=== PATIENT | male | born 2000 | race Caucasian/White ===

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

== ENCOUNTER 2018-01-26 13:35 | Emergency (ER) | payer BC, OTHER ==
[2018-01-26 13:49] VITALS: BP 104/65
--- NOTE | 2018-01-26 13:54 | UC ---
Hand/Wrist HPI - HPI Summary HPI Summary: c/o trauma to right hand yesterday while playing paint ball, landed on it extending pinky finger. Denies pain when at rest, but painful when extending finger. - History Of Current Complaint Stated Complaint: HAND INJURY Time Seen by Provider: 01/26/18 13:41 Hx Obtained From: Patient ?: No Onset/Duration: Sudden Onset, Lasting Days Severity Initially: Severe Severity Currently: Moderate Pain Intensity: 6 Character Of Pain: Dull Aggravating Factor(s): Extension Alleviating Factor(s): Rest, Ice, Elevation Associated Signs And Symptoms: Positive: Negative - Allergies/Home Medications Allergies/Adverse Reactions: Allergies Allergy/AdvReac Type Severity Reaction Status Date / Time No Known Allergies Allergy Verified 03/03/13 19:18 PMH/Surg Hx/FS Hx/Imm Hx Previously Healthy: Yes - Surgical History Surgical History: None - Social History Alcohol Use: Rare Substance Use Type: None Smoking Status (MU): Never Smoked Tobacco - Immunization History Vaccination Up to Date: Yes Review of Systems Constitutional: Negative Musculoskeletal: Arthralgia, Myalgia All Other Systems Reviewed And Are Negative: Yes Physical Exam Triage Information Reviewed: Yes Appearance: Well-Appearing, No Pain Distress, Well-Nourished Vital Signs: Initial Vital Signs Temp 97.8 F 01/26/18 13:46 Pulse 76 01/26/18 13:46 Resp 16 01/26/18 13:46 BP 104/65 01/26/18 13:46 Pulse Ox 99 01/26/18 13:46 Vital Signs Reviewed: Yes Eyes: Positive: Conjunctiva Clear ENT: Positive: Hearing grossly normal Respiratory: Positive: No respiratory distress Cardiovascular: Positive: Pulses Normal, Brisk Capillary Refill Musculoskeletal: Positive: Strength Intact, No Edema, Other: - right hand: mild tenderness on fifth MCP joint. No deformity, no bruises, no edema. Radial/ulnar pulses present, capillary refill brisk. Hand/Wrist Course/Dx - Course Course Of Treatment: Xrays show no fracture of right hand. Instructed about RICE , ibuprofen as needed, f/u with PCP in 2 weeks, Referral to hand specialist if symptoms persist - Differential Dx/Diagnosis Provider Diagnoses: hand sprain Discharge - Sign-Out/Discharge Documenting (check all that apply): Discharge/Admit/Transfer - Discharge Plan Condition: Good Disposition: HOME Patient Education Materials: Ibuprofen (By mouth), Hand Sprain (ED) Referrals: Mannie Johnson MD [Primary Care Provider] - - Billing Disposition and Condition Condition: GOOD Disposition: HOME
--- NOTE | 2018-01-26 14:18 | RAD ---
Indication: Right hand pain. 4 views of the right hand demonstrates no fracture. Special attention was paid to the proximal interphalangeal joint of the fifth digit. No fracture is identified. There is a tiny calcification at the fifth metacarpal phalangeal joint in its radial aspect. This may be sequela from prior injury. This does not appear to be recent. IMPRESSION: No fracture of the right hand with special attention paid to the right fifth digit.
== END 2018-01-26 14:37 | disposition home or self-care (01) ==
LOC: UCEAST 13:35
DX: S63.91XA Sprain of unspecified part of right wrist and hand, initial encounter (principal); W18.30XA Fall on same level, unspecified, initial encounter; Y93.89 Activity, other specified; Y92.9 Unspecified place or not applicable
CPT/HCPCS: 99211; G0463

== ENCOUNTER 2018-06-03 15:21 | Emergency (ER) | payer BC ==
[2018-06-03 15:32] VITALS: BP 137/82
--- NOTE | 2018-06-03 16:52 | UC ---
Respiratory Complaint HPI - HPI Summary HPI Summary: cough x 3 days + chest congestion , productive cough with yellow sputum no fever, no chills, + wheezing no nasal congestion , no cold symptoms - History of Current Complaint Chief Complaint: UCRespiratory Stated Complaint: COUGH,ASTHMA Time Seen by Provider: 06/03/18 16:24 Hx Obtained From: Patient Onset/Duration: Gradual Onset, Lasting Days - 3, Still Present Timing: Constant Severity Initially: Moderate Severity Currently: Moderate Pain Intensity: 6 Character: Cough: Productive - yellow Aggravating Factors: Exertion, Deep Breaths Alleviating Factors: Nothing Associated Signs And Symptoms: Positive: Dyspnea, Wheezing. Negative: Fever, Chills, Edema, URI, Nasal Congestion - Allergies/Home Medications Allergies/Adverse Reactions: Allergies Allergy/AdvReac Type Severity Reaction Status Date / Time No Known Allergies Allergy Verified 06/03/18 15:32 Home Medications: Home Medications Albuterol HFA INHALER* [Ventolin HFA Inhaler*] 2 puff INH Q4H PRN 06/03/18 [ History Confirmed 06/03/18] PMH/Surg Hx/FS Hx/Imm Hx Respiratory History: Asthma - Surgical History Surgical History: None - Family History Known Family History: Negative: Diabetes - Social History Alcohol Use: None Substance Use Type: None Smoking Status (MU): Never Smoked Tobacco - Immunization History Vaccination Up to Date: Yes Review of Systems Constitutional: Negative Skin: Negative Eyes: Negative ENT: Negative Respiratory: Shortness Of Breath, Cough Cardiovascular: Negative Gastrointestinal: Negative Is Patient Immunocompromised?: No All Other Systems Reviewed And Are Negative: Yes Physical Exam Triage Information Reviewed: Yes Appearance: Well-Appearing, No Pain Distress, Well-Nourished Vital Signs: Initial Vital Signs Temp 98.8 F 06/03/18 15:29 Pulse 84 06/03/18 15:29 Resp 18 06/03/18 15:29 BP 137/82 06/03/18 15:29 Pulse Ox 98 06/03/18 15:29 Vital Signs Reviewed: Yes Eye Exam: Normal Eyes: Positive: Conjunctiva Clear ENT: Positive: Normal ENT inspection, Hearing grossly normal, Pharynx normal Neck exam: Normal Neck: Positive: Supple, Nontender, No Lymphadenopathy Respiratory: Positive: Chest non-tender, Wheezing Cardiovascular: Positive: RRR, No Murmur, Pulses Normal Skin Exam: Normal Diagnostic Evaluation - Laboratory O2 Sat by Pulse Oximetry: 98 Diagnostic Studies Comment: chest xray: IMPRESSION: NO ACTIVE CARDIOPULMONARY DISEASE. Respiratory Course/Dx - Differential Dx/Diagnosis Provider Diagnoses: bronchitis Discharge - Sign-Out/Discharge Documenting (check all that apply): Patient Departure All imaging exams completed and their final reports reviewed: Yes - Discharge Plan Condition: Stable Disposition: HOME Patient Education Materials: Acute Bronchitis (ED) Referrals: Mannie Johnson MD [Primary Care Provider] - 7 Days Additional Instructions: viral Bronchitis no need for antibiotics cont. with rest, increase fluid cont. with your albuterol inh as needed for wheezing and sob - Billing Disposition and Condition Condition: STABLE Disposition: Home
--- NOTE | 2018-06-03 16:57 | RAD ---
HISTORY: cough COMPARISONS: None VIEWS: 4: Frontal dual-energy and lateral views of the chest. FINDINGS: CARDIOMEDIASTINAL SILHOUETTE: The cardiomediastinal silhouette is normal. MARY KAY: The mary kay are normal. PLEURA: The costophrenic angles are sharp. No pleural abnormalities are noted. LUNG PARENCHYMA: The lungs are clear. ABDOMEN: The upper abdomen is clear. There is no subphrenic gas. BONES AND SOFT TISSUES: No bone or soft tissue abnormalities are noted. OTHER: None. IMPRESSION: NO ACTIVE CARDIOPULMONARY DISEASE.
== END 2018-06-03 17:06 | disposition home or self-care (01) ==
LOC: UCEAST 15:21
DX: J45.909 Unspecified asthma, uncomplicated (principal)
CPT/HCPCS: 71046; 99211; G0463

== ENCOUNTER 2018-06-09 14:03 | Emergency (ER) | payer BC ==
[2018-06-09 14:16] VITALS: BP 110/63
--- NOTE | 2018-06-09 14:40 | UC ---
Respiratory Complaint HPI - HPI Summary HPI Summary: 17 y/o with h/o asthma c/o shortness of breath, non-productive cough x 10 days without improvement suing albuterol inhaller 2-3 times a dy, no dizziness , lightheadedness, able to do daily activities. no fever, chills, no fatigue, no feeling ill. - History of Current Complaint Chief Complaint: UCRespiratory Stated Complaint: COUGH Time Seen by Provider: 06/09/18 14:13 Hx Obtained From: Patient Onset/Duration: Gradual Onset, Lasting Days Severity Initially: Mild Severity Currently: None Pain Intensity: 0 Pain Scale Used: 0-10 Numeric Aggravating Factors: Exertion Alleviating Factors: Bronchodilator Associated Signs And Symptoms: Positive: Dyspnea - with activity - Allergies/Home Medications Allergies/Adverse Reactions: Allergies Allergy/AdvReac Type Severity Reaction Status Date / Time No Known Allergies Allergy Verified 06/09/18 14:16 PMH/Surg Hx/FS Hx/Imm Hx Previously Healthy: Yes - Surgical History Surgical History: None - Family History Known Family History: Negative: Diabetes - Social History Alcohol Use: None Substance Use Type: None Smoking Status (MU): Never Smoked Tobacco - Immunization History Vaccination Up to Date: Yes Review of Systems Respiratory: Shortness Of Breath Is Patient Immunocompromised?: No All Other Systems Reviewed And Are Negative: Yes Physical Exam Triage Information Reviewed: Yes Appearance: Well-Appearing, No Pain Distress, Well-Nourished Vital Signs: Initial Vital Signs Temp 98.3 F 06/09/18 14:13 Pulse 72 06/09/18 14:13 Resp 18 06/09/18 14:13 BP 110/63 06/09/18 14:13 Pulse Ox 97 06/09/18 14:13 Vital Signs Reviewed: Yes Eyes: Positive: Conjunctiva Clear ENT: Positive: Pharynx normal, TMs normal, Uvula midline. Negative: Dental tenderness, Sinus tenderness Neck: Positive: Supple, Nontender, No Lymphadenopathy Respiratory: Positive: Chest non-tender, Lungs clear, Normal breath sounds, No respiratory distress, No accessory muscle use, Wheezing - minimal expiratorty wheeze worst MARICRUZ. Negative: Respiratory distress, Decreased breath sounds, Accessory muscle use Cardiovascular Exam: Normal UC Diagnostic Evaluation - Laboratory O2 Sat by Pulse Oximetry: 97 Respiratory Course/Dx - Course Course Of Treatment: mild asthma exaccerbation due to viral URI, short course prednisone with steroid inhaler given, follow up with pcp if no improvement or return to ER with shrtness of breath - Differential Dx/Diagnosis Differential Diagnosis/HQI/PQRI: Asthma Provider Diagnoses: viral URI Discharge - Sign-Out/Discharge Documenting (check all that apply): Patient Departure All imaging exams completed and their final reports reviewed: Yes - Discharge Plan Condition: Good Disposition: HOME Prescriptions: Albuterol HFA INHALER* [Ventolin HFA Inhaler*] 2 puff INH Q4H PRN #1 mdi PRN Reason: Shortness Of Breath Beclomethasone 80 MCG MDI(NF) [Qvar 80 MCG MDI(NF)] 1 puff INH DAILY #1 mdi predniSONE [Prednisone 20 MG TAB] 20 mg PO DAILY #2 tablet Patient Education Materials: Beclomethasone (By breathing) Forms: *School Release Referrals: Mannie Johnson MD [Primary Care Provider] - Additional Instructions: - steroid inhaler while ill to decrease symptoms - Albuterol inhaler as needed for shortness of breath - oral prednisone to decrease symptoms - return with increased shortness of breath - Billing Disposition and Condition Condition: GOOD Disposition: Home
== END 2018-06-09 15:05 | disposition home or self-care (01) ==
LOC: UCEAST 14:03
DX: J06.9 Acute upper respiratory infection, unspecified (principal)
CPT/HCPCS: 99212; G0463

== ENCOUNTER 2019-11-16 12:26 | Emergency (ER) | payer OTHER ==
[2019-11-16 13:08] LABS: Influenza B Molecular POSITIVE (Negative)
[2019-11-16 13:09] VITALS: BP 110/69
--- NOTE | 2019-11-16 13:24 | UC ---
FLU HPI - HPI Summary HPI Summary: 19-year-old male comes in with a chief complaint of influenza-like illness for about 5 days. Is also having cough chest congestion. Sputum was turned yellow and had some blood in it today. Does have a history of asthma is been using his albuterol inhaler which does help with the breathing. Does have fever chills body aches. - History of Current Complaint Chief Complaint: UCGeneralIllness Stated Complaint: FLU SYMPTOMS Time Seen by Provider: 11/16/19 13:02 Pain Intensity: 1 - Allergy/Home Medications Allergies/Adverse Reactions: Allergies Allergy/AdvReac Type Severity Reaction Status Date / Time No Known Allergies Allergy Verified 11/16/19 13:02 Home Medications: Home Medications Albuterol HFA INHALER* [Ventolin HFA Inhaler*] 2 puff INH Q4H PRN #1 mdi [Rx Confirmed 11/16/19] Beclomethasone 80 MCG MDI(NF) [Qvar 80 MCG MDI(NF)] 1 puff INH DAILY #1 mdi [Rx Confirmed 11/16/19] Azithromyxin JANI (NF) [Z-Jani (Zithromax) 250 mg tabs #6] 2 tab PO .TODAY, THEN 1 DAILY #6 tab 11/16/19 [Rx] PMH/Surg Hx/FS Hx/Imm Hx Previously Healthy: Yes Respiratory History: Asthma - Surgical History Surgical History: Yes Surgery Procedure, Year, and Place: oral surgery - Family History Known Family History: Negative: Diabetes - Social History Alcohol Use: None Substance Use Type: None Smoking Status (MU): Never Smoked Tobacco - Immunization History Vaccination Up to Date: Yes Review of Systems All Other Systems Reviewed And Are Negative: Yes Constitutional: Positive: Fever, Chills, Other - SEE HPI Skin: Positive: Negative Eyes: Positive: Negative ENT: Positive: Sore Throat - MILD, Nasal Discharge Respiratory: Positive: Cough, Other - SEE HPI Cardiovascular: Positive: Negative Gastrointestinal: Positive: Negative Motor: Positive: Negative Neurovascular: Positive: Negative Musculoskeletal: Positive: Myalgia Neurological/Mental Status: Positive: Headache Psychological: Positive: Negative Is Patient Immunocompromised?: No Physical Exam Triage Information Reviewed: Yes Appearance: No Pain Distress, Well-Nourished, Ill-Appearing - MILD Vital Signs: Initial Vital Signs Temp 100 F 11/16/19 13:03 Pulse 110 11/16/19 13:03 Resp 18 11/16/19 13:03 BP 110/69 11/16/19 13:03 Pulse Ox 96 11/16/19 13:03 Vital Signs Reviewed: Yes Eye Exam: Normal Eyes: Positive: Conjunctiva Clear ENT: Positive: Pharynx normal, Nasal congestion, Nasal drainage, TMs normal Neck: Positive: Supple Respiratory: Positive: No respiratory distress, Rhonchi - MILD Cardiovascular: Positive: RRR Musculoskeletal: Positive: Strength Intact, ROM Intact Neurological: Positive: Alert, Muscle Tone Normal Psychological: Positive: Age Appropriate Behavior Skin Exam: Normal Flu Course/Dx - Course Course Of Treatment: Publications Writer: Steffany Quiroz ([id number]) Dice Maker: JOHN (ROYCEANCE) Report Date: 11/16/2019 13:20:00 Report Status: Final Start of Report Content Patient Name: SOTERO DAVALOS Medical Record#: [id number] Ordering Physician: Jv Gaines MD Acct.#: [id number] : 2000 Age: 19 Sex: M Location: [facility] Exam Date: 11/16/19 ADM Status: REG REF Order Information: CHEST PA LAT 2 [facility] Accession Number: [id number] CPT: 18496 HISTORY: PNEUMONIA, UNSPECIFIED ORGANISM COMPARISONS: Prior study of June 03, 2018. VIEWS: 4: Frontal dual-energy and lateral views of the chest. FINDINGS: CARDIOMEDIASTINAL SILHOUETTE: The cardiomediastinal silhouette is normal. CAMMY: The cammy are normal. Bilateral perihilar bronchial cuffing is noted PLEURA: The costophrenic angles are sharp. No pleural abnormalities are noted. LUNG PARENCHYMA: The lungs are clear. There is moderate hyperaeration ABDOMEN: The upper abdomen is clear. There is no subphrenic gas. BONES AND SOFT TISSUES: No bone or soft tissue abnormalities are noted. OTHER: None. IMPRESSION: Moderate hyperaeration with bilateral perihilar bronchial cuffing may suggest bronchitis, please correlate clinically <Electronically signed by Steffany Quiroz MD in [place]> 11/16/19 1317 Dictated By: Steffany Quiroz MD Dictated Date/Time: 11/16/19 1315 Transcribed Date/Time: 11/16/19 131 Copy to: CC:Jv Gaines MD Imaging - [facility] Imaging - [facility] [address] [address] ph ) ph [phone]) ph ([phone]) End of Report Content Patient's chest x-ray which was done on an outpatient order from his primary care physician shows peribronchial cuffing. Discussed all this with the patient. With the patient's respiratory symptoms getting worse and with blood in the sputum we will start azithromycin. Patient's past the 48 hour window for Tamiflu. We discussed potential use of prednisone for asthma however patient does not feel like he needs oral prednisone at this time and I did not prescribe any prednisone. As follows primary care doctor get reevaluated sooner if worse or any questions or concerns. - Differential Dx/Diagnosis Provider Diagnosis: Influenza, Bronchitis Discharge ED - Sign-Out/Discharge Documenting (check all that apply): Patient Departure All imaging exams completed and their final reports reviewed: Yes - Discharge Plan Condition: Stable Disposition: HOME Prescriptions: Azithromyxin JANI (NF) [Z-Jani (Zithromax) 250 mg tabs #6] 2 tab PO .TODAY, THEN 1 DAILY #6 tab Patient Education Materials: Influenza (ED), Acute Bronchitis (ED) Forms: *School Release Referrals: Jv Gaines MD [Primary Care Provider] - Additional Instructions: FOLLOW UP WITH YOUR DOCTOR IF NOT COMPLETELY IMPROVED. GET REEVALUATED SOONER IF NOT IMPROVED OR WORSE OR ANY QUESTIONS OR CONCERNS. - Billing Disposition and Condition Condition: STABLE Disposition: Home
== END 2019-11-16 13:42 | disposition home or self-care (01) ==
LOC: UCEAST 12:26
DX: J11.1 Influenza due to unidentified influenza virus with other respiratory manifestations (principal); J45.909 Unspecified asthma, uncomplicated; Z79.51 Long term (current) use of inhaled steroids
CPT/HCPCS: 99212; G0463